=== PATIENT | female | born 1975 | race African-American/Black ===

== ENCOUNTER 2022-06-29 21:00 | Inpatient (IN) | payer BC, MEDICAID ==
[~2022-06-29] VITALS: Ht 165.1 cm; Wt 714.0 kg
[2022-06-29] MEDS ORDERED: ONDANSETRON HCL 4MG/2ML INJ IV STA (22:23)
[2022-06-29] MEDS ORDERED: MORPHINE SULFATE 4 MG/ML CPJ (NOT FOR IM USE) IV STA (22:23)
[2022-06-29 23:33] LABS: CHLORIDE 104 mEq/L (98-107)
[2022-06-29 23:37] LABS: HEMATOCRIT. 42.6 % (36.0-48.0); MEAN CORPUSCULAR HEMOGLOBIN 29.3 pg (28.0-32.0); MEAN CORPUSCULAR VOLUME 88.9 fL (81.0-99.0); MEAN PLATELET VOLUME 8.2 fl (7.4-10.4); PLATELET 374 x1000/uL (130-400); RED BLOOD CELL COUNT 4.78 mill/uL (4.2-5.4); RED CELL DISTRIBUTION WIDTH 14.2 % (11.6-14.6)
[2022-06-29 23:44] LABS: ETHANOL BLOOD < 10 mg/dL
[2022-06-30 00:30] LABS: *AMPHETAMINES SCREEN URINE NEGATIVE (NEGATIVE); *BARBITURATES SCREEN URINE NEGATIVE (NEGATIVE); *BENZODIAZEPINES SCREEN URINE NEGATIVE (NEGATIVE); *COCAINE SCREEN URINE NEGATIVE (NEGATIVE); METHADONE URINE SCREEN NEGATIVE (NEGATIVE); PHENCYCLIDINE URINE SCREEN NEGATIVE (NEGATIVE)
[2022-06-30 00:42] LABS: PLATELET ESTIMATE NORMAL
[2022-06-30 00:50] LABS: CANNABINOID URINE SCREEN PRESUMTIVE POSITIVE (NEGATIVE); OPIATES URINE SCREEN PRESUMTIVE POSITIVE (NEGATIVE)
[2022-06-30] MEDS ORDERED: MORPHINE SULFATE 4 MG/ML CPJ (NOT FOR IM USE) IV NR (02:00)
[2022-06-30] MEDS ORDERED: LABETALOL HCL VIAL 20 MG/4 ML VIAL IV NR (02:00)
[2022-06-30] MEDS ORDERED: GUAIFENESIN 200MG/10ML SUGAR FREE UDC PO PRN (05:45)
[2022-06-30] MEDS ORDERED: MAGNESIUM/ALUMINUM HYDROXIDE/SIMETHICONE 30ML UDC PO PRN (05:45)
[2022-06-30] MEDS ORDERED: ACETAMINOPHEN 325MG TABLET PO PRN (05:45)
[2022-06-30] MEDS ORDERED: ONDANSETRON HCL 4MG/2ML INJ IV PRN (05:45)
[2022-06-30] MEDS ORDERED: TRAMADOL 50MG TABLET PO PRN (05:45)
[2022-06-30] MEDS ORDERED: DOCUSATE SODIUM 100MG CAPSULE PO PRN (05:45)
[2022-06-30] MEDS: HYDROCODONE/ACETAMINOPHEN 5/325MG TABLET PO PRN ×2 (06:23→11:23)
[2022-06-30 08:00] VITALS: BP 105/57
[2022-06-30] MEDS ORDERED: ENOXAPARIN 40MG/0.4ML SYR SUBCUT SCH (09:00)
[2022-06-30] MEDS ORDERED: ASPIRIN 81MG EC TABLET PO SCH (09:00)
[2022-06-30] MEDS ORDERED: AMLODIPINE 10MG TABLET PO SCH (09:00)
[2022-06-30] MEDS ORDERED: NITROGLYCERIN 0.4MG TABLET SL SL PRN (10:15)
[2022-06-30 10:33] VITALS: BP 105/57
[2022-06-30] MEDS ORDERED: POTASSIUM CHLORIDE 20MEQ TABLET SR PO NR (11:45)
[2022-06-30 12:00] VITALS: BP 122/72
[2022-06-30 16:10] VITALS: BP 128/75
== END 2022-06-30 16:55 | disposition home or self-care (01) | DRG 206 ==
LOC: ER 21:00 → 7WST 06-30 02:50 → ENRESERV 06-30 04:54
PROVIDERS: ADMIT Hospitalist; ATTEND Hospitalist
DX: M94.0 Chondrocostal junction syndrome [Tietze] (principal); I16.0 Hypertensive urgency; I10 Essential (primary) hypertension; F41.9 Anxiety disorder, unspecified
CPT/HCPCS: 36415; 71045; 80053; 80305; 80320; 83880; 84484; 85025; 93005; 99285; J1650; J2270; J2405; J3490; G0480

== ENCOUNTER 2022-07-01 04:10 | Inpatient (IN) | payer BC, MEDICAID ==
[~2022-07-01] VITALS: Ht 165.1 cm; Wt 69.4 kg
[2022-07-01] MEDS ORDERED: ASPIRIN 81MG TABLET PO ONE (04:30)
[2022-07-01] MEDS ORDERED: HALOPERIDOL LACTATE 5MG/ML VIAL IM ONE (04:30)
[2022-07-01 04:42] LABS: BASOPHILS % 0.3 % (0.0-2.0); EOSINOPHILS % 0.3 % (0.0-5.0); HEMATOCRIT. 43.9 % (36.0-48.0); HEMOGLOBIN. 14.7 g/dL (12.0-16.0); LYMPHOCYTES % 23.9 % (20.0-50.0); MEAN CORPUSCULAR HEMOGLOBIN 29.7 pg (28.0-32.0); MEAN CORPUSCULAR VOLUME 88.6 fL (81.0-99.0); MEAN PLATELET VOLUME 7.8 fl (7.4-10.4); MONOCYTES % 6.3 % (2.0-8.0); NEUTROPHILS % 69.2 % (40.0-76.0); PLATELET 355 x1000/uL (130-400); RED BLOOD CELL COUNT 4.96 mill/uL (4.2-5.4); RED CELL DISTRIBUTION WIDTH 14.2 % (11.6-14.6)
[2022-07-01 04:49] LABS: CHLORIDE 106 mEq/L (98-107)
[2022-07-01 05:01] LABS: ETHANOL BLOOD < 10 mg/dL
[2022-07-01] MEDS ORDERED: ONDANSETRON HCL 4MG/2ML INJ IV NR (05:45)
[2022-07-01] MEDS ORDERED: MORPHINE SULFATE 4 MG/ML CPJ (NOT FOR IM USE) IV NR (05:45)
[2022-07-01 06:55] LABS: HCG SCREEN NEGATIVE
[2022-07-01] MEDS ORDERED: ZOLPIDEM TARTRATE 5MG TABLET PO PRN (07:15)
[2022-07-01] MEDS ORDERED: NITROGLYCERIN 0.4MG TABLET SL SL PRN (07:15)
[2022-07-01] MEDS ORDERED: IOHEXOL-350 100 ML BOTTLE ONE (07:25)
[2022-07-01] MEDS ORDERED: ACETAMINOPHEN 325MG TABLET PO PRN ×2 (07:30)
[2022-07-01] MEDS ORDERED: IPRATROPIUM/ALBUTEROL 0.5-3(2.5)MG/3ML NEB NEB PRN (07:30)
[2022-07-01] MEDS ORDERED: MAGNESIUM/ALUMINUM HYDROXIDE/SIMETHICONE 30ML UDC PO PRN (07:30)
[2022-07-01] MEDS ORDERED: GUAIFENESIN 200MG/10ML SUGAR FREE UDC PO PRN (07:30)
[2022-07-01] MEDS ORDERED: DOCUSATE SODIUM 100MG CAPSULE PO PRN (07:30)
[2022-07-01] MEDS ORDERED: CLONIDINE 0.1MG TABLET PO PRN (07:30)
[2022-07-01] MEDS ORDERED: KETOROLAC 15MG/ML VIAL IV PRN (07:30)
[2022-07-01] MEDS ORDERED: ONDANSETRON HCL 4MG/2ML INJ IV PRN (07:30)
[2022-07-01 07:47] LABS: ETHANOL BLOOD < 10 mg/dL; HDL CHOLESTEROL 59 mg/dL (40-59); LDL CHOLESTEROL 53 mg/dL (5-100); T4 FREE 1.24 ng/dL (0.76-1.46)
[2022-07-01] MEDS: ENOXAPARIN 40MG/0.4ML SYR SUBCUT SCH (08:55)
[2022-07-01] MEDS: AMLODIPINE 10MG TABLET PO SCH (08:55)
[2022-07-01] MEDS: FAMOTIDINE 20MG TABLET PO SCH ×2 (08:55→20:03)
[2022-07-01 09:00] VITALS: BP 170/101
[2022-07-01] MEDS ORDERED: ASPIRIN 325MG EC TABLET PO SCH (09:00)
[2022-07-01] MEDS ORDERED: REGADENOSON 0.4 MG/5 ML IV NR (10:00)
[2022-07-01] MEDS: METOPROLOL TARTRATE 25MG TABLET PO SCH ×2 (11:17→20:03)
[2022-07-01 12:00] VITALS: BP 165/110
[2022-07-01 16:00] VITALS: BP 173/96
[2022-07-01 17:45] LABS: CREATINE KINASE 130 IU/L (26-192); CREATINE KINASE MB FRACTION < 1.0 ng/mL (0.5-3.6)
[2022-07-01] MEDS: LIDOCAINE 5% PATCH TOP SCH (17:48)
[2022-07-01 20:00] VITALS: BP 111/69
[2022-07-02] VITALS: BP 108/75
[2022-07-02 04:00] VITALS: BP 102/72
[2022-07-02 08:00] VITALS: BP 103/66
[2022-07-02] MEDS ORDERED: ASPIRIN 81MG EC TABLET PO SCH (09:00)
[2022-07-02] MEDS: AMLODIPINE 10MG TABLET PO SCH (09:00)
[2022-07-02] MEDS: METOPROLOL TARTRATE 25MG TABLET PO SCH (09:00)
[2022-07-02] MEDS: ENOXAPARIN 40MG/0.4ML SYR SUBCUT SCH (09:41)
[2022-07-02] MEDS: FAMOTIDINE 20MG TABLET PO SCH (09:41)
[2022-07-02] MEDS: LIDOCAINE 5% PATCH TOP SCH (09:52)
[2022-07-02 10:27] VITALS: BP 103/60
[2022-07-02 12:00] VITALS: BP 89/49
== END 2022-07-02 15:10 | disposition home or self-care (01) | DRG 206 ==
LOC: ER 04:10 → 8WST 06:51 → ENRESERV 07:16
PROVIDERS: ADMIT Internal Medicine; ATTEND Internal Medicine
DX: M94.0 Chondrocostal junction syndrome [Tietze] (principal); F41.9 Anxiety disorder, unspecified; Z20.822 Contact with and (suspected) exposure to COVID-19; R07.9 Chest pain, unspecified; I10 Essential (primary) hypertension; F32.A Depression, unspecified; Z79.899 Other long term (current) drug therapy
CPT/HCPCS: 36415; 71275; 78452; 80053; 80061; 80320; 82550; 82553; 83036; 83880; 84439; 84443; 84484; 84703; 85025; 85379; 87426; 93005; 93017; 93306; 93970; 99285; A9500; J1630; J1650; J1885; J2270; J2405; J2785; Q9967; G0480